=== PATIENT | male | born 1940 | race American Indian/Alaskan Native ===

== ENCOUNTER 2017-10-29 14:08 | Emergency (ER) | payer MEDICARE ==
[2017-10-29 15:16] VITALS: BP 140/76
[2017-10-29 16:49] LABS: Basophils # (Auto) 0.1 K/mm3 (0.0-0.1); Basophils % (Auto) 0.7 % (0.0-1.8); Eosinophils # (Auto) 0.3 K/mm3 (0.0-0.4); Eosinophils % (Auto) 4.1 % (0.0-4.3); Hematocrit 38.6 % (35.5-45.6); Hemoglobin 13.4 gm/dl (11.8-15.2); Lymphocytes # (Auto) 2.4 K/mm3 (1.2-5.4); Mean Corpuscular HGB Conc 35 % (32-34); Mean Corpuscular Hemoglobin 30 pg (28-32); Mean Corpuscular Volume 87 fl (84-94); Monocytes # (Auto) 0.7 K/mm3 (0.0-0.8); Monocytes % (Auto) 8.5 % (0.0-7.3); Platelet Count 227 K/mm3 (140-440); Red Blood Count 4.42 M/mm3 (3.65-5.03); Red Cell Distribution Width 13.3 % (13.2-15.2)
[2017-10-29 16:58] LABS: BUN/Creatinine Ratio 11; Blood Urea Nitrogen 10 mg/dL (9-20); Calcium 9.5 mg/dL (8.4-10.2); Hemolysis Index 6
[2017-10-29 17:01] LABS: Bilirubin,Urine NEG (Negative); Blood,Urine NEG (Negative); Color,Urine Yellow (Yellow); Mucus,Urine FEW /HPF; Protein,Urine <15 mg/dL mg/dL (Negative); RBC,Urine < 1.0 /HPF (0.0-6.0); Urobilinogen,Urine < 2.0 mg/dL (<2.0); WBC,Urine < 1.0 /HPF (0.0-6.0)
--- NOTE | 2017-10-29 17:13 | Emergency Department Report ---
Chief Complaint: Neuro Symptoms/Deficit Stated Complaint: SHAKING WHEN WALKING Time Seen by Provider: 10/29/17 16:31 - HPI History of Present Illness: The patient is an 76-year-old male presents for evaluation of lightheadedness and dizziness last night. The patient states that at 10 PM last night he experienced moderate in severity dizziness with ambulation, resolved with sitting down and rest. He submits that his symptoms completely resolved prior to my evaluation. The patient shares that he believes his symptoms were secondary to use of insulin without eating last night. The patient denies fever , head injury, headache, chest pain, dyspnea, cough, syncope, dysuria, neck pain , neck stiffness, vision or hearing changes, smell or taste changes, paresthesias, arm or leg motor weakness, facial drooping, slurred speech, seizure-like activity, urine or bowel incontinence or retention, or other focal neurological deficit. - Exam Vital Signs: Vital Signs 10/29/17 15:13 Temperature 98 F Pulse Rate 82 Respiratory 20 Rate Blood Pressure 140/76 O2 Sat by Pulse 98 Oximetry Physical Exam: General: well-nourished, well-developed, no acute distress Head: Normocephalic, atraumatic Eyes: normal sclera, PERRL, EOM intact ENT: Mucous membranes are pale and dry Neck: trachea midline, neck supple, No neck stiffness, no cervical adenopathy Respiratory: Breath sounds equal bilaterally, no wheezing, rales, or rhonchi Cardio: S1 and S2 present, no murmurs, rubs, gallops, capillary refill is delayed Abdomen: Normoactive bowel sounds, soft abdomen, no rigidity, no guarding or rebound tenderness Chest WALL/Back: No tenderness to palpation of the chest wall, no CVA tenderness with percussion Musc: No pitting edema Skin: No rash Neuro: alert oriented x4, normal cognition, speech normal, no facial drooping, no uvula or tongue deviation on protrusion, no deficit with rotation of neck or shoulder shrug, no obvious gross motor deficit in the upper or lower extremities with flexion or extension at the shoulder, elbow, wrist, hip, knee, or ankle bilaterally, no obvious gross sensation deficit to crude touch or 2 pt discrimination, 2+ symmetric reflexes on DTR testing, no coordination deficit with [id number] or [id number] testing, Babinski downgoing, romberg negative, patient able to to ambulate in a straight line without any abnormal gait whatsoever Psych: Normal affect MSE screening note: Focused history and physical exam performed. Due to findings the following was ordered: ED Medical Decision Making - Lab Data Result diagrams: 10/29/17 16:36 10/29/17 16:36 ED Disposition for MSE Condition: Stable Referrals: PRIMARY CARE, [Primary Care Provider] - 3-5 Days
--- NOTE | 2017-10-29 19:17 | Cat Scan Report ---
FINAL REPORT EXAM: CT HEAD/BRAIN WO CON HISTORY: dizziness, unsteady gait TECHNIQUE: Standard unenhanced CT of the head at 5.0 millimeter axial increments. PRIORS: None. FINDINGS: The ventricular system is normal in size and configuration. There is moderate cerebral atrophy. There low-density in the periventricular white matter of the left frontal lobe and right posterior parietal region consistent with small vessel ischemic changes. There is no evidence for mass lesion, mass effect, midline shift, acute intracranial hemorrhage, or acute ischemia/ infarction. No evidence for acute skull fracture is seen. No abnormality in the overlying scalp soft tissues is seen. Visualized paranasal sinuses demonstrates opacification of 1 of the posterior right ethmoid air cells. IMPRESSION: Atrophy and small vessel ischemic changes. No acute intracranial process noted.
--- NOTE | 2017-10-29 20:40 | Emergency Department Report ---
HPI - General Chief Complaint: Neuro Symptoms/Deficit Time Seen by Provider: 10/29/17 16:31 - HPI HPI: The patient is an 76-year-old male presents for evaluation of lightheadedness and dizziness last night. The patient states that at 10 PM last night he experienced moderate in severity dizziness with ambulation, resolved with sitting down and rest. He submits that his symptoms completely resolved prior to my evaluation. The patient shares that he believes his symptoms were secondary to use of insulin without eating last night. The patient denies fever , head injury, headache, chest pain, dyspnea, cough, syncope, dysuria, neck pain , neck stiffness, vision or hearing changes, smell or taste changes, paresthesias, arm or leg motor weakness, facial drooping, slurred speech, seizure-like activity, urine or bowel incontinence or retention, or other focal neurological deficit. Patient reports that he is on valsartan hydrochlorothiazide, potassium, metformin, and the fit appearing, gilberto a lot. Patient reports he has a primary care doctor which is . Patient reported that last night he was able to drive himself to the store to get or issues since he felt that his blood sugar was low. ED Past Medical Hx - Past Medical History Previous Medical History?: Yes Hx Hypertension: Yes Hx Diabetes: Yes - Surgical History Past Surgical History?: No - Social History Smoking Status: Former Smoker Substance Use Type: Prescribed - Medications Home Medications: Home Medications Medication Instructions Recorded Confirmed Last Taken Type Aspirin EC [Aspirin Enteric Coated 81 mg PO QDAY 09/29/14 09/29/14 Unknown History TAB] Azilsartan Medoxomil [Edarbi] 80 mg PO DAILY 09/29/14 09/29/14 Unknown History Labetalol [Normodyne TAB] 300 mg PO BID 09/29/14 09/29/14 Unknown History Lovastatin [Altoprev] 40 mg PO QDAY 09/29/14 09/29/14 Unknown History Metformin HCl [metFORMIN ER] 500 mg PO BID 09/29/14 09/29/14 09/28/14 History NIFEdipine [NIFEdipine ER] 90 mg PO QDAY 09/29/14 09/29/14 Unknown History Prazosin [Minipress] 2 mg PO TID 09/29/14 09/29/14 Unknown History ED Review of Systems ROS: Stated complaint: SHAKING WHEN WALKING Other details as noted in HPI Constitutional: denies: chills, fever Eyes: denies: eye pain, eye discharge, vision change ENT: denies: ear pain, throat pain Respiratory: denies: cough, shortness of breath, wheezing Cardiovascular: denies: chest pain, palpitations Endocrine: no symptoms reported Gastrointestinal: denies: abdominal pain, nausea, diarrhea Genitourinary: denies: urgency, dysuria Musculoskeletal: other (shakiness and unsteady gait which she reports is all resolved). denies: back pain, joint swelling, arthralgia Skin: denies: rash, lesions Neurological: denies: headache, weakness, paresthesias Psychiatric: denies: anxiety, depression Hematological/Lymphatic: denies: easy bleeding, easy bruising Physical Exam - Physical Exam Vital Signs: Vital Signs 10/29/17 15:13 Temperature 98 F Pulse Rate 82 Respiratory 20 Rate Blood Pressure 140/76 O2 Sat by Pulse 98 Oximetry Physical Exam: GENERAL APPEARANCE: Well developed, well nourished, in no acute distress. SKIN: Inspection of the skin reveals no rashes, ulcerations or petechiae. HEENT: The sclerae were anicteric and conjunctivae were pink and moist. Extraocular movements were intact and pupils were equal, round, and reactive to light with normal accommodation. External inspection of the ears and nose showed no scars, lesions, or masses. Lips, teeth, and gums showed normal mucosa. The oral mucosa, hard and soft palate, tongue and posterior pharynx were normal. NECK: Supple and symmetric. There was no thyroid enlargement, and no tenderness , or masses were felt. CHEST: Normal AP diameter and normal contour without any kyphoscoliosis. LUNGS: Auscultation of the lungs revealed normal breath sounds without any other adventitious sounds or rubs. CARDIOVASCULAR: There was a regular rate and rhythm without any murmurs, gallops , rubs. The carotid pulses were normal and 2+ bilaterally without bruits. Peripheral pulses were 2+ and symmetric. MUSCULOSKELETAL: Gait was normal. There was no tenderness or effusions noted. Muscle strength and tone were normal. EXTREMITIES: No cyanosis, clubbing or edema. NEUROLOGIC: Alert and oriented x 3. Normal affect. Gait was normal. Normal deep tendon reflexes with no pathological reflexes. Sensation to touch was normal. ED Course Vital Signs 10/29/17 15:13 Temperature 98 F Pulse Rate 82 Respiratory 20 Rate Blood Pressure 140/76 O2 Sat by Pulse 98 Oximetry ED Medical Decision Making - Lab Data Result diagrams: 10/29/17 16:36 10/29/17 16:36 - Medical Decision Making Patient has been evaluated by this provider as well as Dr. Faye. Patient was reports everything has resolved. X-ray of the head no acute findings. Labs were stable. Discussed the patient should follow-up with his primary care provider patient verbalized understanding. Critical care attestation.: If time is entered above; I have spent that time in minutes in the direct care of this critically ill patient, excluding procedure time. ED Disposition Clinical Impression: Shakiness Disposition: DC-01 TO HOME OR SELFCARE Is pt being admited?: No Does the pt Need Aspirin: No Condition: Stable Instructions: Dizziness (ED) Additional Instructions: Please take all medication as prescribed. Please be sure to eat when taking her metformin. Please follow up with her primary care provider. Also recommend checking her blood sugar at least once a day. Referrals: PRIMARY CARE, [Primary Care Provider] - 3-5 Days
== END 2017-10-29 21:01 | disposition home or self-care (01) ==
LOC: ED 14:08
DX: R25.1 Tremor, unspecified (principal); I10 Essential (primary) hypertension; E11.9 Type 2 diabetes mellitus without complications; Z87.891 Personal history of nicotine dependence; Z79.82 Long term (current) use of aspirin
CPT/HCPCS: 36415; 70450; 80048; 81001; 82805; 85025; 93005; 93010; 99284; G0480; 80320